=== PATIENT | male | born 1950 | race Caucasian/White ===

== ENCOUNTER 2019-01-05 07:19 | Day surgery (SDC) | payer BC, MEDICARE ==
[~2019-01-05 07:19] MED LIST: Lactated Ringers 1,000 ML IV SCH; Sodium Chloride 0.9% 10 ML Syringe FLUSH PRN
[2019-01-05] MEDS ORDERED: Lidocaine 2% 100 MG/5 ML Syringe IVPUSH ONE (07:20)
[2019-01-05] MEDS ORDERED: Ondansetron 4 MG/2 ML SDV IVPUSH ONE (07:20)
[2019-01-05] MEDS ORDERED: ePHEDrine 50 MG/ML SDV IV ONE (07:20)
[2019-01-05] MEDS ORDERED: Lactated Ringers 1,000 ML IV ONE (07:20)
[2019-01-05] MEDS ORDERED: Glycopyrrolate 0.2 MG/ML 5 ML MDV IV ONE (07:20)
[2019-01-05] MEDS ORDERED: Dexamethasone 4 MG/ML 5 ML MDV IVPUSH ONE (07:20)
[2019-01-05] MEDS ORDERED: Flumazenil 0.1 MG/ML 5 ML MDV IV ONE (07:20)
[2019-01-05] MEDS ORDERED: Midazolam 1 MG/ML 2 ML SDV IV ONE (07:20)
[2019-01-05] MEDS ORDERED: Propofol 200 MG/20 ML SDV IV ONE (07:20)
[2019-01-05] MEDS ORDERED: ceFAZolin 1 GM in Sodium Chloride 0.9% 50 ML IV ONE (08:00)
[2019-01-05] MEDS ORDERED: ceFAZolin 1 GM Vial IVPUSH ONE (08:00)
--- NOTE | 2019-01-05 08:14 | PCM.PN ---
- General Info Date of Service: 01/05/19 - Review of Systems Systems Review Comment:: 68 y/o male here for repair of recurrent right inguinal hernia. Patient stable to proceed with no significant changes from his recent evaluation. The site of his hernia is confirmed with the patient and marked. The proposed procedure is again reviewed with the patient. Questions answered. Instructions reviewed. He agrees to proceed accepting risks. - Patient Data Weight - Most Recent: 130 lb Med Orders - Current: Current Medications Lactated Ringer's (Ringers, Lactated) 1,000 mls @ 125 mls/hr IV ASDIRECTED VINAY Sodium Chloride (Saline Flush) 10 ml FLUSH ASDIRECTED PRN PRN Reason: Keep Vein Open Discontinued Medications Cefazolin Sodium (Ancef) 1 gm IVPUSH ONETIME ONE Stop: 01/05/19 08:01 - Problem List Review Problem List Initiated/Reviewed/Updated: Yes - My Orders Last 24 Hours: My Active Orders 01/04/19 Dinner Nothing Per Oral Diet [DIET] 01/05/19 06:45 Patient Status [ADT] Routine Patient to Empty Bladder [RC] ASDIRECTED RT Incentive Spirometry [RC] ASDIRECTED Verify Patient Consent Obtain [RC] ASDIRECTED Lactated Ringers [Ringers, Lactated] 1,000 ml IV ASDIRECTED Sodium Chloride 0.9% [Saline Flush] 10 ml FLUSH ASDIRECTED PRN Peripheral IV Insertion Adult [OM.PC] Routine Sequential Compression Device [OM.PC] Routine - Assessment Assessment:: recurrent right inguinal hernia - Plan Plan:: repair right inguinal hernia
[2019-01-05] MEDS ORDERED: Bupivacaine 0.5% 30 ML SDV INJECT ONE (08:48)
--- NOTE | 2019-01-05 09:47 | PCM.OPNOTE ---
- General Post-Op/Procedure Note Date of Surgery/Procedure: 01/05/19 Operative Procedure(s): Repair recurrent right inguinal hernia with mesh Findings: Moderate sized direct right inguinal hernia Moderate scar but no mesh from previous repair Pre Op Diagnosis: Recurrent Right Inguinal Hernia Post-Op Diagnosis: Same Anesthesia Technique: General LMA Primary Surgeon: Lyle De La O Pathology: none Output, Urine Amount: 0 EBL in mLs: 10 Complications: None Condition: Good
--- NOTE | 2019-01-05 10:30 | OR ---
DATE OF OPERATION: 01/05/2019 SURGEON: Lyle De La O MD PREOPERATIVE DIAGNOSIS: Recurrent right inguinal hernia. POSTOPERATIVE DIAGNOSIS: Recurrent direct right inguinal hernia. OPERATION PERFORMED: Repair of recurrent right inguinal hernia with mesh. INDICATIONS FOR SURGERY: This 68-year-old male has developed a bulge in the right groin consistent with a right inguinal hernia. The patient had an inguinal hernia repair in this area many years ago. With the development of a new hernia, here he comes for elective repair. FINDINGS: The patient has a moderate-sized direct inguinal hernia on the right side. There was no indirect component. There is a moderate amount of scar tissue in this area from the previous repair. PROCEDURE IN DETAIL: The patient was taken to the operating room. He was given general LMA anesthesia. The right groin was sterilely prepped and draped. A linear right groin incision was made utilizing the healed surgical scar. Dissection proceeded down onto the external oblique fascia, which was incised opening the external ring. The spermatic cord was isolated and explored. No indirect component was identified. The direct component is identified in the floor of the inguinal canal. After clearly identifying the anatomy, a large sized keyhole shaped piece of polypropylene mesh was then selected and after soaking this in Ancef, it was secured down over Hesselbach's triangle to reinforce the floor of the right inguinal canal. The inferior edge of the mesh was secured down to the Jose's ligament medial to the femoral vessels and the shelving portion of the inguinal ligament anterior to these vessels with interrupted 0 Prolene. The superior edge of the mesh after trimming to appropriate size is secured down to the internal oblique fascia near its fusion with the external oblique fascia also with interrupted 0 Prolene. The cord is placed through the keyhole defect and the tails of the mesh were secured laterally with interrupted 0 Prolene to recreate the internal ring such that it would admit 1 fingertip alongside the spermatic cord. The tails of the mesh were trimmed and laid into the space lateral to the internal ring between the internal and external oblique fascia. The wound was irrigated with Ancef and saline. The external oblique fascia is reapproximated with running 2-0 Vicryl. The wound was infiltrated with Marcaine. The subcutaneous tissue was approximated with interrupted 4-0 Vicryl, and the skin was closed with a running 4-0 Vicryl subcuticular stitch. Steri-Strips and benzoin were applied. Antibiotic ointment and sterile dressings were placed. The patient was awakened and taken from the operating room in satisfactory condition. ESTIMATED BLOOD LOSS: 10 mL. COMPLICATIONS: None. PROGNOSIS: Good. /[id number] ASHOK/CHANDANA MTDD
[2019-01-05] MEDS ORDERED: Acetaminophen/HYDROcodone 325-5 MG Tab PO ONE (11:58)
== END 2019-01-05 13:00 | disposition home or self-care (01) ==
LOC: FB.SDS 07:19
PROVIDERS: ATTEND Surgery
DX: K40.91 Unilateral inguinal hernia, without obstruction or gangrene, recurrent (principal); I10 Essential (primary) hypertension; E78.5 Hyperlipidemia, unspecified; Z79.899 Other long term (current) drug therapy; Z91.041 Radiographic dye allergy status
CPT/HCPCS: A9270-GY; C1781; J0690; J1100; J2001; J2250; J2405; J2704; J3490; J7120

== ENCOUNTER 2024-01-07 12:01 | Emergency (ER) | payer MEDICARE, BC ==
[2024-01-07 12:22] LABS: BASOPHILS PERCENT AUTO 0.4 % (0.3-3.8); EOSINOPHILS ABSOLUTE AUTO 0.1 x10-3/uL (0.0-0.6); EOSINOPHILS PERCENT AUTO 1.1 % (0.1-6.8); HEMATOCRIT 41.1 % (38.3-50.1); HEMOGLOBIN 13.5 g/dL (12.9-17.7); LYMPHOCYTES ABSOLUTE AUTO 1.7 x10-3/uL (0.5-4.5); LYMPHOCYTES PERCENT AUTO 27.2 % (15.8-45.3); MEAN CORPUSCULAR HGB CONC 32.9 g/dL (28.7-35.3); MEAN CORPUSCULAR VOLUME 91.1 fL (80.8-98.7); MEAN PLATELET VOLUME 7.3 fL (6.7-11.0); MONOCYTES ABSOLUTE AUTO 0.6 x10-3/uL (0.0-1.2); NEUTROPHILS ABSOLUTE AUTO 3.8 x10-3/uL (1.7-6.9); NEUTROPHILS PERCENT AUTO 61.3 % (40.3-71.8); PLATELET COUNT,PLT 211 x10(3)uL (117-477); RED BLOOD CELL COUNT 4.51 x10(6)uL (3.90-5.90); RED CELL DISTRIBUTION WIDTH 14.2 % (12.4-15.0); WHITE BLOOD CELL COUNT,WBC 6.2 x10-3/uL (3.2-10.1)
[2024-01-07 12:27] LABS: BLOOD UREA NITROGEN,BUN 21 mg/dL (7-18); CARBON DIOXIDE,CO2 30 mmol/L (21-32); CHLORIDE,CL 104 mmol/L (100-110); ESTIMATED GFR 78 mL/min (>60); GLUCOSE RANDOM 100 mg/dL (80-116); POTASSIUM,K 3.8 mmol/L (3.5-5.3); SODIUM,NA 142 mmol/L (135-145)
[2024-01-07 12:30] LABS: INR 0.91 (1.00-1.24); PROTHROMBIN TIME 9.6 sec (9.0-11.1)
[2024-01-07 12:34] LABS: A/G RATIO 1.2; ALANINE AMINOTRANSFERASE,ALT 43 U/L (12-36); ALBUMIN 4.1 g/dL (3.2-4.6); ALKALINE PHOSPHATASE 82 IU/L (56-112); ASPARTATE AMNIOTRANSFERASE,AST 30 IU/L (5-25); BILIRUBIN TOTAL 0.8 mg/dL (0.1-1.3); PROTEIN TOTAL,TP 7.6 g/dL (6.0-8.0)
[2024-01-07 12:58] LABS: BILIRUBIN,URINE NEGATIVE (NEGATIVE); GLUCOSE,URINE NORMAL (NORMAL); KETONES,URINE NEGATIVE (NEGATIVE); LEUKOCYTE ESTERASE,URINE NEGATIVE (NEGATIVE); NITRITE,URINE NEGATIVE (NEGATIVE); OCCULT BLOOD,URINE NEGATIVE (NEGATIVE); PROTEIN,URINE NEGATIVE (NEGATIVE); UROBILINOGEN,URINE NORMAL (NEGATIVE)
[2024-01-07 13:00] LABS: APPEARANCE,URINE CLEAR (CLEAR); COLOR,URINE YELLOW (YELLOW)
== END 2024-01-07 13:25 | disposition home or self-care (01) ==
LOC: FB.ED 12:01
DX: R20.2 Paresthesia of skin (principal); I10 Essential (primary) hypertension; Z79.899 Other long term (current) drug therapy; Z91.041 Radiographic dye allergy status
CPT/HCPCS: 36415; 70450; 80053; 81003; 82947; 84484; 85025; 85610; 93005; 93010; 99284